=== PATIENT | female | born 1975 | race Caucasian/White ===

== ENCOUNTER 2016-07-13 11:20 | Emergency (ER) | payer MEDICARE, MEDICAID ==
[2016-07-13] MEDS ORDERED: ASPIRIN 81 MG CHEW TAB ONE (11:36)
== END 2016-07-13 15:38 | disposition home or self-care (01) ==
LOC: ER 11:20
DX: R07.89 Other chest pain (principal); Z79.899 Other long term (current) drug therapy; F17.210 Nicotine dependence, cigarettes, uncomplicated
CPT/HCPCS: 36415; 71010; 80053; 82550; 83735; 84484; 85025; 85610; 85730; 93005